=== PATIENT | male | born 1935 | race Caucasian/White ===

== ENCOUNTER → 2022-06-15 09:15 | Outpatient (CLI) | payer OTHER, SELFPAY ==
--- NOTE | ~2022-06-15 | MR_ITS ---
EXAMINATION: MR femur RT wo con DATE: 06/15/2022 10:12 INDICATION: 6 weeks of lateral right thigh pain. TECHNIQUE: Magnetic resonance imaging (MRI) of the femur/thigh was performed without intravenous cont rast. Sequences included axial, sagittal and coronal T1-weighted FSE and axial, sagittal and coronal fluid sensitive FSE STIR. The contralateral left thigh is included on the coronal images. COMPARISON: None. FINDINGS: The hip and knee joints are at the cephalad and caudal margins of the [id number] respectively and not diagnostically evaluated. Small bilateral knee joint effusions at the suprapatellar pouches. Norm al bone marrow signal throughout with no fracture or pathologic marrow replacing process. Small enthe sophytes at the right ischial tuberosity. Small region of fatty muscular atrophy at the proximal righ t rectus femoris muscle which may represent sequela of old trauma. Remaining musculature in the right thigh is unremarkable and appears symmetric in bulk and signal and compared with the contralateral l eft thigh on the coronal images. No abnormal masses or fluid collections identified. The neurovascula r structures in the right thigh are unremarkable. No pathologically enlarged inguinal lymphadenopathy . IMPRESSION: 1. No etiology identified for reported pain at the lateral right thigh. 2. Likely incidental small bilateral knee joint effusions. Reviewed, dictated and finalized at location B.
== END ==
PROVIDERS: PCP Internal Medicine; Visit Provider Orthopaedic Surgery
DX: M79.604 Pain in right leg (principal)
CPT/HCPCS: 73718